=== PATIENT | male | born 1985 | race African-American/Black ===

== ENCOUNTER 2017-03-22 21:40 | Emergency (ER) | payer MEDICAID ==
[~2017-03-22] VITALS: Ht 188 cm; Wt 156.0 kg
[~2017-03-22 21:40] MED LIST: AUGM875T PO; CORT1SOL RIGHT EAR; PRED20 PO; VENTAER INH; ZITH250T PO
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
[2017-03-22 21:51] VITALS: RESP 18; TEMP 98.4; O2SAT 98
[2017-03-22 22:00] VITALS: BP 171/87; PULSE 89; RESP 18; O2SAT 97
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
== END 2017-03-22 23:06 | disposition home or self-care (01) ==
LOC: NEPD 21:40
DX: S01.01XA Laceration without foreign body of scalp, initial encounter (principal); I10 Essential (primary) hypertension; Y00.XXXA Assault by blunt object, initial encounter
CPT/HCPCS: 12001; 70450

== ENCOUNTER 2017-04-07 11:44 | Emergency (ER) | payer MEDICAID ==
[2017-04-07 11:46] VITALS: BP 173/96; PULSE 72; RESP 20; TEMP 98.6; O2SAT 98
--- NOTE | 2017-04-07 12:07 | PD ---
HPI Chief Complaint: Wound/Suture/Staple Re-Check Time Seen by Provider: 11:59 Travel History International Travel<30 days: No Contact w/Intl Traveler<30days: No Traveled to known affect area: No History of Present Illness HPI PATIENT HAD STAPLE TO SCALP ABOUT 10 DAYS AGO, HE NOW RETURRNS TO HAVE IT REMOVED, NO DRAINAGE, NO OTHER COMPLAINT PFSH Past Medical History Diminished Hearing: No Hypertension: Yes Musculoskeletal: Yes (SCIATICA / CHRONIC LOW BACK PAIN) Sleep Apnea: Yes Social History Alcohol Use: Yes (OCCAS) Tobacco Use: No Substance Use: Yes (SMOKES BLUNTS 3 DAYS A WEEK) Allergies-Medications (Allergen,Severity, Reaction): Coded Allergies: Shellfish (Verified Allergy, Severe, THROAT SWELLS, 08/21/16) Reported Meds & Prescriptions Reported Meds & Active Scripts Active No Active Prescriptions or Reported Medications Review of Systems Except as stated in HPI: all other systems reviewed are Neg Physical Exam Narrative GENERAL: SKIN: Warm and dry. HEAD: Atraumatic. Normocephalic. EYES: Pupils equal and round. No scleral icterus. No injection or drainage. ENT: No nasal bleeding or discharge. Mucous membranes pink and moist. NECK: Trachea midline. No JVD. CARDIOVASCULAR: Regular rate and rhythm. RESPIRATORY: No accessory muscle use. Clear to auscultation. Breath sounds equal bilaterally. GASTROINTESTINAL: Abdomen soft, non-tender, nondistended. MUSCULOSKELETAL: Extremities without clubbing, cyanosis, or edema. No obvious deformities. NEUROLOGICAL: Awake and alert. No obvious cranial nerve deficits. Motor grossly within normal limits. Five out of 5 muscle strength in the arms and legs. Normal speech. PSYCHIATRIC: Appropriate mood and affect; insight and judgment normal. Data Data Last Documented VS Vital Signs Date Time Temp Pulse Resp B/P Pulse Ox O2 Delivery O2 Flow Rate FiO2 04/07/17 11:46 98.6 72 20 173/96 98 Room Air MDM Medical Decision Making Medical Screen Exam Complete: Yes Emergency Medical Condition: Yes Medical Record Reviewed: Yes Differential Diagnosis N/A Narrative Course 2 BANDAR REMOVED WITHOUT DIFFICULTY, NO DRAINAGE Diagnosis Primary Impression: Removal of bandar Patient Instructions: General Instructions Scripts No Active Prescriptions or Reported Meds Disposition: 01 DISCHARGE HOME Condition: Stable Ramsey Mayorga MD Apr 07, 2017 12:07
== END 2017-04-07 12:34 | disposition home or self-care (01) ==
LOC: NEPD 11:44
DX: Z48.02 Encounter for removal of sutures (principal)
CPT/HCPCS: 99281

== ENCOUNTER 2017-10-17 08:15 | Emergency (ER) | payer MEDICAID ==
[~2017-10-17] VITALS: Ht 190.5 cm; Wt 160.0 kg
[2017-10-17 08:17] VITALS: BP 172/98; PULSE 107; RESP 16; TEMP 98.7; O2SAT 98
[2017-10-17 08:40] VITALS: BP 161/85; PULSE 91; RESP 20; O2SAT 98
--- NOTE | 2017-10-17 09:40 | PD ---
HPI Chief Complaint: Medical Clearance Time Seen by Provider: 09:00 Travel History International Travel<30 days: No Contact w/Intl Traveler<30days: No Traveled to known affect area: No History of Present Illness HPI 31-year-old male presents to the emergency department with complaint of insomnia 3 weeks. Says he has history of sleep apnea and has not been able to stay asleep for the past 3 weeks. Says he keeps waking up every 1 hour. He has not taken any medications or tried any treatments to alleviate his symptoms. He has no emergent medical complaints at this time. He denies chest pain, shortness of breath, abdominal pain, fevers, vomiting. Symptoms are possibly aggravated by his sleep apnea. No known relieving factors. No primary care provider. Allergies to shellfish. History of sleep apnea. Denies other significant past medical history. Has no other medical complaints. No other modifying factors or associated signs and symptoms. History Social History Alcohol Use: Yes Tobacco Use: Yes Allergies-Medications (Allergen,Severity, Reaction): Coded Allergies: shellfish derived (Unverified Allergy, Severe, THROAT SWELLS, 04/09/17) Reported Meds & Prescriptions Reported Meds & Active Scripts Active No Active Prescriptions or Reported Medications Review of Systems Except as stated in HPI: all other systems reviewed are Neg Physical Exam Narrative GENERAL: Well-nourished, well-developed black male patient, in no acute distress ; patient sleeping on my arrival into the room SKIN: Warm and dry. HEAD: Atraumatic. Normocephalic. EYES: Pupils equal and round. No scleral icterus. No injection or drainage. ENT: Mucosa pink and moist. Airway patent. NECK: Trachea midline. CARDIOVASCULAR: Regular rate and rhythm. No murmur appreciated. RESPIRATORY: No accessory muscle use. Breath sounds clear and equal bilaterally. No retractions or tachypnea. GASTROINTESTINAL: Obese. Abdomen soft, non-tender, nondistended. Positive bowel sounds. No hepato-splenomegaly, or palpable masses. No guarding. MUSCULOSKELETAL: No obvious deformities. No clubbing. No cyanosis. No edema. NEUROLOGICAL: Awake and alert. Oriented 3. No obvious cranial nerve deficits. Motor grossly within normal limits. Normal speech. PSYCHIATRIC: Appropriate mood and affect; insight and judgment normal. Data Data Last Documented VS Vital Signs Date Time Temp Pulse Resp B/P (MAP) Pulse Ox O2 Delivery O2 Flow Rate FiO2 2/22/18 08:40 91 20 161/85 (110) 98 Room Air 10/17/17 08:17 98.7 MDM Medical Screen Exam Complete: Yes Emergency Medical Condition: No Differential Diagnosis Insomnia, sleep apnea, difficulty staying asleep Narrative Course 31-year-old male with difficulty staying asleep 3 weeks and complaining of insomnia possibly related to his sleep apnea. Patient provided a community resource sheet for follow-up. Vital signs are stable and the patient is stable for outpatient follow-up and treatment. The pateint has no urgent or emergent medical complaints. There is no emergent or urgent medical need at this time. I instructed the patient to follow up with [facility] emergency primary care provider. A medical screening exam was performed: At the time of evaluation the presenting medical condition was determined not to be of an emergent nature. The patient was given the option of receiving additional care, but declined. Patient was given options for additional community resources from which to obtain care. The Patient Has Been advised to seek medical attention for their presenting complaint. The patient has been advised to return to the ER at any time if an emergent condition develops. Primary Impression: Encounter for medical screening examination Scripts No Active Prescriptions or Reported Meds Disposition: 07 EDGO-ED USE ONLY Condition: Stable Yenni Martel Oct 17, 2017 09:40
== END 2017-10-17 09:24 | disposition left against medical advice (07) ==
LOC: NEPD 08:15
DX: G47.00 Insomnia, unspecified (principal)
CPT/HCPCS: 99281